=== PATIENT | female | born 1980 | race Caucasian/White ===

== ENCOUNTER → 2020-07-03 | Day surgery (SDC) | payer BC ==
--- NOTE | 2020-07-04 17:51 | PATH ---
Surgical Pathology Report Patient Name: FINA HEADLEY [facility]. Rec. #: [id number] /Age/Gender: 1980 (Age: 40) / F Account: [id number] Location: RADIOLOGY [facility] Taken: 07/03/2020 Received: 07/03/2020 Reported: 07/04/2020 Physicians: Claire Hunter M.D. Specimen(s) Received LEFT BREAST 11:00 Clinical History Nonpalpable lesion Ultrasound findings: Suspicious Final Diagnosis LEFT BREAST 11-12:00, 1.3 CM SOLID MASS, ULTRASOUND GUIDED CORE BIOPSY: BREAST TISSUE WITH FIBROADENOMA AND PROLIFERATIVE FIBROCYSTIC CHANGES INCLUDING USUAL DUCTAL HYPERPLASIA (UDH) AND STROMAL FIBROSIS. Electronically Signed Mahendra Gan M.D. Gross Description Received in formalin labeled "left 11:00," are 4 osei, cylindrical portions of fibroadipose tissue ranging from 0.3-1.0 cm in length and averaging 0.1 cm in diameter. The specimens are submitted in toto in one cassette. Time to formalin fixation: Less than one minute Total formalin fixation time: Approximately 6 hours. /07/03/2020 saudi/07/03/2020
== END | disposition home or self-care (01) ==
LOC: JRADUS-SUR 11:29
PROVIDERS: ATTEND Advanced Practice Midwife
PROC: 0H9U3ZX Drainage of Left Breast, Percutaneous Approach, Diagnostic (ICD-10-PCS; principal; 2020-07-03)
DX: D24.2 Benign neoplasm of left breast (principal)
CPT/HCPCS: 19083; 87899; 88305-TC; A4648